=== PATIENT | male | born 1975 | race Caucasian/White ===

== ENCOUNTER 2019-03-02 17:03 | Emergency (ER) | payer SELFPAY ==
--- NOTE | 2019-03-02 17:23 | EDM.PDOC ---
ED HPI GENERAL MEDICAL PROBLEM - General Chief Complaint: Neurological Problem Stated Complaint: AMBULANCE Time Seen by Provider: 03/02/19 17:10 Source of Information: Reports: Patient History Limitations: Reports: No Limitations - History of Present Illness INITIAL COMMENTS - FREE TEXT/NARRATIVE: This 43 yo male patient was brought to the ED by [facility] due to possible seizures. The patient was doing some work at [employer] when bystanders initially reported the patient fell to the ground and had some seizure like activity. The patient reports he has some right jaw pain at this time. The patient denies any recent drug use. The patient admits to having several drinks last night. The patient is currently not on any medications and has no past medical history. The patent states he has been eating normally, but not drinking much today. The patient is confused as to where he is at this time. Onset: Today Duration: Minutes:, Improving Location: Reports: Other Quality: Reports: Other Severity: Mild Improves with: Reports: None Worsens with: Reports: None Context: Reports: Other Associated Symptoms: Reports: Confusion - Related Data Allergies Allergy/AdvReac Type Severity Reaction Status Date / Time No Known Allergies Allergy Verified 03/02/19 17:03 Home Meds: Home Meds . [No Known Home Meds] 03/02/19 [History] Social & Family History - Tobacco Use Smoking Status *Q: Current Every Day Smoker Years of Tobacco use: 15 Packs/Tins Daily: 0.5 - Caffeine Use Caffeine Use: Reports: Coffee, Energy Drinks - Alcohol Use Number of Drinks Per Day: 3 Date of Last Drink: 03/01/19 - Recreational Drug Use Recreational Drug Use: Yes Drug Use in Last 12 Months: Yes Recreational Drug Type: Reports: Marijuana/Hashish Recreational Drug Use Frequency: Weekly Recreational Drug Last Use: t-2 ED ROS GENERAL - Review of Systems Review Of Systems: ROS reveals no pertinent complaints other than HPI. - Physical Exam Exam: See Below Exam Limited By: No Limitations General Appearance: Alert, WD/WN, Moderate Distress Eye Exam: Bilateral Eye: EOMI, Normal Inspection, PERRL Ears: Normal Canal, Hearing Grossly Normal, Normal TMs, Other (left ear abrasion ) Nose: Normal Inspection, Normal Mucosa, No Blood Throat/Mouth: Normal Inspection, Normal Lips, Normal Teeth, Normal Gums, Normal Oropharynx, Normal Voice, No Airway Compromise Head Exam: Atraumatic, Normocephalic Neck: Normal Inspection, Supple, Non-Tender, Full Range of Motion Respiratory/Chest: No Respiratory Distress, Lungs Clear, Normal Breath Sounds, No Accessory Muscle Use, Chest Non-Tender Cardiovascular: Normal Peripheral Pulses, Regular Rate, Rhythm, No Edema, No Gallop, No JVD, No Murmur, No Rub GI/Abdominal: Normal Bowel Sounds, Soft, Non-Tender, No Organomegaly, No Distention, No Abnormal Bruit, No Mass (Male) Exam: Deferred Rectal (Males) Exam: Deferred Neuro Exam (Abbreviated): Alert, CN II-XII Intact, Disoriented Back Exam: Normal Inspection, Full Range of Motion, NT Extremities: Normal Inspection, Normal Range of Motion, Non-Tender, No Pedal Edema, Normal Capillary Refill Psychiatric: Normal Affect, Normal Mood Skin Exam: Warm, Dry, Intact, Normal Color, No Rash Course - Vital Signs Last Recorded V/S: Last Vital Signs Temp 37.0 C 03/02/19 17:06 Pulse 113 H 03/02/19 17:06 Resp 14 03/02/19 17:06 BP 152/51 H 03/02/19 17:06 Pulse Ox 95 03/02/19 17:06 - Orders/Labs/Meds Orders: Active Orders 24 hr Category Date Time Status EKG Documentation Completion [RC] URGENT Care 03/02/19 17:04 Active Head wo Cont [CT] Urgent Exams 03/02/19 17:24 Ordered ACETAMINOPHEN [CHEM] Stat Lab 03/02/19 17:20 Received COMPREHENSIVE METABOLIC PN,CMP [CHEM] Urgent Lab 03/02/19 17:20 Received DRUG SCREEN URINE BIORAD [URCHEM] Stat Lab 03/02/19 17:04 Ordered ETHANOL BLOOD MEDICAL [CHEM] Stat Lab 03/02/19 17:20 Received RED BLOOD CELLS LP [BBK] Stat Lab 03/02/19 17:36 Ordered SALICYLATE [CHEM] Stat Lab 03/02/19 17:20 Received TROPONIN I [CHEM] Urgent Lab 03/02/19 17:20 Received TYPE AND SCREEN [BBK] Stat Lab 03/02/19 17:36 Ordered UA RFX CHAGO AND CULT IF INDIC [URIN] Urgent Lab 03/02/19 17:04 Ordered Labs: Laboratory Tests 03/02/19 Range/Units 17:20 WBC 7.8 (5.0-10.0) 10^3/uL RBC 2.85 L (4.6-6.2) 10^6/uL Hgb 4.9 L* (14.0-18.0) g/dL Hct 18.9 L* (40.0-54.0) % MCV 66.3 L (80-100) fL MCH 17.2 L (27.0-34.0) pg MCHC 25.9 L (33.0-35.0) g/dL Plt Count 268 (150-450) 10^3/uL Neut % (Auto) 70.3 (42.2-75.2) % Lymph % (Auto) 18.3 L (20.5-50.1) % [place] % (Auto) 10.3 H (2-8) % Eos % (Auto) 0.5 L (1.0-3.0) % Baso % (Auto) 0.6 (0.0-1.0) % - Re-Assessments/Exams Free Text/Narrative Re-Assessment/Exam: 03/02/19 17:42 The patient was advised of the examination, EKG and lab results. The patient admits that he has noticed some blood in his stool. The patient was advised that his hemoglobin level was very low. The patient was advised that we had ordered a unit of blood to be given to the patient. The patient reports that he does not want to stay in the hospital. At that point, the patient requested that he be released from the hospital. The patient stated that he wants to " just go home and rest". The patient understands that he is leaving the hospital against medical advice and the possible consequences of his actions could lead to poor outcome including . Departure - Departure Time of Disposition: 17:47 Disposition: Against Medical Advice 07 Condition: Serious Clinical Impression: Low hemoglobin - Discharge Information Forms: ED Department Discharge Care Plan Goals: The patient left the ED against medical advice after an explanation of the lab results and proposed treatment. - My Orders Last 24 Hours: My Active Orders 03/02/19 17:04 EKG Documentation Completion [RC] URGENT DRUG SCREEN URINE BIORAD [URCHEM] Stat UA RFX CHAGO AND CULT IF INDIC [URIN] Urgent 03/02/19 17:20 ACETAMINOPHEN [CHEM] Stat COMPREHENSIVE METABOLIC PN,CMP [CHEM] Urgent ETHANOL BLOOD MEDICAL [CHEM] Stat SALICYLATE [CHEM] Stat TROPONIN I [CHEM] Urgent 03/02/19 17:24 Head wo Cont [CT] Urgent 03/02/19 17:36 RED BLOOD CELLS LP [BBK] Stat TYPE AND SCREEN [BBK] Stat - Assessment/Plan Last 24 Hours: My Active Orders 03/02/19 17:04 EKG Documentation Completion [RC] URGENT DRUG SCREEN URINE BIORAD [URCHEM] Stat UA RFX CHAGO AND CULT IF INDIC [URIN] Urgent 03/02/19 17:20 ACETAMINOPHEN [CHEM] Stat COMPREHENSIVE METABOLIC PN,CMP [CHEM] Urgent ETHANOL BLOOD MEDICAL [CHEM] Stat SALICYLATE [CHEM] Stat TROPONIN I [CHEM] Urgent 03/02/19 17:24 Head wo Cont [CT] Urgent 03/02/19 17:36 RED BLOOD CELLS LP [BBK] Stat TYPE AND SCREEN [BBK] Stat
[2019-03-02 17:49] LABS: ANION GAP 19.9; CHLORIDE,CL 101 mmol/L (101-111); SODIUM,NA 133 mmol/L (135-145)
[2019-03-02 17:52] LABS: ACETAMINOPHEN < 10 ug/mL
== END 2019-03-02 18:00 | disposition left against medical advice (07) ==
LOC: DL.ED 17:03
DX: S01.312A Laceration without foreign body of left ear, initial encounter (principal); S00.83XA Contusion of other part of head, initial encounter; R56.9 Unspecified convulsions; D64.9 Anemia, unspecified; F17.210 Nicotine dependence, cigarettes, uncomplicated; W18.30XA Fall on same level, unspecified, initial encounter
CPT/HCPCS: 36415; 70450; 80053; 84484; 85025; 93005; 99285-25; G0480